=== PATIENT | male | born 1955 | race Caucasian/White ===

== ENCOUNTER 2017-01-10 11:12 | Day surgery (SDC) | payer OTHER ==
[~2017-01-10 11:12] MED LIST: Buffered Lidocaine 0.9% SYRIN* 5 ML/SYR SYRINGE INTRADERM ONE
[2017-01-10] MEDS ORDERED: Famotidine IV* 10 MG/ML 2 ML (20 mg) IV ONE (11:56)
[2017-01-10] MEDS ORDERED: Dexamethasone IV* 4 MG/ML 1 ML (4 MG) IV SLOW PU ONE (11:56)
[2017-01-10] MEDS ORDERED: Famotidine IV* 10 MG/ML 2 ML (20 mg) ONE (12:00)
[2017-01-10] MEDS ORDERED: Dexamethasone IV* 4 MG/ML 1 ML (4 MG) ONE (12:00)
[2017-01-10] MEDS ORDERED: Propofol* 10 MG/ML 20 ML BTL IV PUSH ONE (12:24)
[2017-01-10] MEDS ORDERED: fentaNYL* 50 MCG/ML 2 ML VIAL (100 MCG VIAL) ONE (12:25)
[2017-01-10] MEDS ORDERED: Ondansetron INJ* 2 MG/ML VIAL ONE (12:25)
[2017-01-10] MEDS ORDERED: Midazolam* 1 MG/ML 2 ML VIAL (2 MG) ONE (12:25)
[2017-01-10] MEDS ORDERED: DiMENhydriNATE IV* 50 MG/ML VIAL IV PUSH PRN (14:03)
[2017-01-10] MEDS ORDERED: fentaNYL* 50 MCG/ML 2 ML VIAL (100 MCG VIAL) IV PRN (14:03)
[2017-01-10] MEDS ORDERED: Bupivacaine 0.25% SDV* 30 ML ONE (14:18)
[2017-01-10] MEDS ORDERED: Lidocaine 1% INJ* 10 MG/ML 30 ML SDV ONE (14:18)
[2017-01-10] MEDS ORDERED: ceFAZolin 2 GM PREMIX(*) 2 GM/50 ML BAG IVPB ONE (14:21)
[2017-01-10] MEDS ORDERED: Ketorolac INJ* 30 MG/ML 1 ML VIAL ONE (14:59)
[2017-01-10 15:51] VITALS: BP 137/82
--- NOTE | 2017-01-11 11:45 | OP ---
DATE OF OPERATION: 01/10/17 - [facility] DATE OF : 55 SURGEON: Emigdio Palacios MD. FENCE LABORER: ELÍAS Becerril. ANESTHESIOLOGIST: Dr. Hampton. ANESTHESIA: General. PRE-OP DIAGNOSIS: Left middle finger protuberant mass from the volar aspect over the proximal phalanx. POST-OP DIAGNOSIS: Left middle finger protuberant mass from the volar aspect over the proximal phalanx. OPERATIVE PROCEDURE: Excision of left middle finger mass. INDICATIONS: Benito is a 61-year-old male who over the last 3 months has had a large growth of granulation tissue off the volar aspect of the left middle finger over the proximal phalanx area. It has really gotten bigger over the last couple of weeks. His primary care doctor sent him over. We talked about risks and benefits. He elected to proceed with excision of the mass. He understands there is a small chance this may be malignant in nature, in which case it would require additional surgery. ESTIMATED BLOOD LOSS: 2 mL. COMPLICATIONS: None. FINDINGS: As expected. DESCRIPTION OF PROCEDURE: Benito was seen in the preoperative holding area and the correct site, side, and the procedure were identified. We had a time- out and then we came back to the operating room where the arm was prepped and draped in the usual fashion and a formal time-out was performed. I made an oblique incision over the volar aspect of the middle phalanx in line with the Raheem type incision. I took a millimeter or two of healthy skin on either side of the protuberant fungating mass. Dissection was carried directly down, keeping a margin of healthy tissues on all sides of the mass. It was removed. This was then taken directly off the flexor tendon sheath. The mass did not involve the deep structures. The mass was in the midline and so neither the radial nor ulnar digital neurovascular bundles needed to be visualized. Once the mass was excised in its entirety, while taking to make sure we maintained good hemostasis, we then irrigated out the wound. The skin was then closed with 5-0 nylon suture. The tourniquet was deflated. The arm was then exsanguinated and the tourniquet inflated to 250 mmHg prior to making the skin incision. The finger pinked up immediately. The finger was dressed with Xeroform, 4x4's, 1-inch Hai, and a Coban dressing was applied. He was then woken up and taken to Recovery in stable condition. No local anesthetic was injected. [id number]/[facility] #: [id number] ALYSSIA
== END 2017-01-14 16:04 | disposition home or self-care (01) ==
LOC: OREAST 11:12
PROVIDERS: ATTEND Orthopaedic Surgery Hand Surgery
DX: R22.32 Localized swelling, mass and lump, left upper limb (principal); L98.0 Pyogenic granuloma
CPT/HCPCS: 88305; J0690; J1100; J1885; J2001; J2250; J2405; J2704; J3010

== ENCOUNTER 2018-08-27 05:44 | Day surgery (SDC) | payer OTHER ==
--- NOTE | 2018-08-04 09:46 | HP ---
CC: Dr. Fer Sanz * PREOPERATIVE HISTORY AND PHYSICAL: DATE OF ADMISSION/SURGERY: 08/13/18 This patient is scheduled for same-day surgery admission by Dr. Keith on 08/13/18. DATE OF EXAMINATION: 08/01/18 ATTENDING SURGEON: Dr. Hemant Keith * (dictated by Samantha Trinidad NP) CHIEF COMPLAINT: Right inguinal hernia and umbilical hernia. HISTORY OF PRESENT ILLNESS: The patient is a 63-year-old male who presented to [facility] with a greater than 5-year history of a right inguinal hernia. He describes having a right inguinal hernia repair as a young child. He is not sure when the hernia recurred, possibly somewhere between 5 and 10 years ago. He denies any signs or symptoms to suggest incarceration or strangulation; he describes the bulge getting bigger. He denies any change in bowel or bladder habits. Dr. Keith examined the patient and noted a reducible right inguinal hernia as well as a nonreducible umbilical hernia. Dr. Keith has recommended laparoscopic right inguinal hernia repair with mesh and primary open repair of the umbilical hernia at the same setting. Dr. Keith described the nature of the surgical procedure, the rationale for the procedure, the relevant risks and benefits, the use of mesh and today I reviewed the expected postoperative care and recovery. The patient has had a change to ask questions and stated that he understands the information and is satisfied with the answers given to his questions. He will sign surgical consent on the day of surgery. PAST MEDICAL HISTORY: Hypertension and osteoarthritis. PAST SURGICAL HISTORY: Left hip arthroscopy 2014. MEDICATIONS: Amlodipine/benazepril hydrochloride 5/20 mg 1 p.o. daily. ALLERGIES: No known drug allergies. FAMILY HISTORY: No known anesthesia complications, bleeding tendencies or clotting disorders. SOCIAL HISTORY: He is retired; he has never been a smoker. He occasionally consumes alcohol and denies the use of other substances. REVIEW OF SYSTEMS: Constitutional: No fevers, chills, excessive fatigue or weight loss. Endocrine: No diabetes or thyroid disease. Hematologic: No easy bruising or bleeding. No history of blood transfusions. Respiratory: No dyspnea on exertion, no chronic cough. Cardiovascular: No anginal chest pain, no history of myocardial infarction. Gastrointestinal: No nausea, vomiting, diarrhea, GI bleeding, or constipation. No change in bowel habits. Genitourinary: No dysuria. No change in bladder habits. Musculoskeletal: No chronic back or joint pain. Integumentary: No chronic rashes or skin changes. Neurologic: No headache or blurred vision. No areas of focal weakness or numbness. General: No history of anesthesia complications, no history of deep vein thrombosis or pulmonary embolism. PHYSICAL EXAMINATION GENERAL SURVEY: The patient is a 63-year-old male, well developed, well nourished, in no acute distress. VITAL SIGNS: Height 73.75 inches, weight 220 pounds, body mass index 28.4. Blood pressure 150/80, pulse 72 and regular, respiratory rate 18, temperature 97.8 tympanic. SKIN: Warm, dry, intact. HEENT: Benign. NECK: Supple. No cervical lymphadenopathy. No thyromegaly. Trachea midline. LUNGS: Breath sounds bilaterally clear and equal. BACK: No CVA tenderness. HEART: Regular rate and rhythm. No murmurs or rubs appreciated. ABDOMEN: Active bowel sounds, soft, nondistended, nontender; nonreducible umbilical hernia and mild rectus diastasis. Inguinal exam done by Dr. Keith revealed a right inguinal hernia that is reducible. A well-healed right inguinal incision; no left inguinal hernia on palpation and testes are normally descended without lesion. EXTREMITIES: No edema or skin ulcerations. RECTAL: Exam deferred. NEUROLOGIC: Alert and oriented x3, steady gait. IMPRESSION: 1. Right inguinal hernia. 2. Umbilical hernia. PLAN: Same-day surgery admission to Dr. Keith's service on 08/13/18 for laparoscopic right inguinal hernia repair with mesh and primary open repair of umbilical hernia. MEETA TRINIDAD, AGNIESZKA [id number]/[facility] #: [id number] [facility]
[~2018-08-27 05:44] MED LIST changes: -Buffered Lidocaine 0.9% SYRIN* 5 ML/SYR SYRINGE INTRADERM ONE; +Buffered Lidocaine 1% SYRIN* 1 ML/SYRINGE INTRADERM ONE
[2018-08-27] MEDS ORDERED: Dexamethasone IV* 4 MG/ML 1 ML (4 MG) IV SLOW PU ONE (06:00)
[2018-08-27] MEDS ORDERED: Famotidine IV* 10 MG/ML 2 ML (20 mg) IV ONE (06:00)
[2018-08-27] MEDS ORDERED: Lactated Ringers 1000 ML Bag* 1,000 ML IV SCH (06:00)
[2018-08-27] MEDS ORDERED: Dexamethasone IV* 4 MG/ML 1 ML (4 MG) ONE (06:05)
[2018-08-27] MEDS ORDERED: ceFAZolin 2 GM PREMIX in ORs 2 GM/50 ML BAG IVPB ONE (06:05)
[2018-08-27] MEDS ORDERED: Famotidine IV* 10 MG/ML 2 ML (20 mg) ONE (06:05)
[2018-08-27] MEDS ORDERED: fentaNYL* 50 MCG/ML 2 ML VIAL (100 MCG VIAL) ONE (07:06)
[2018-08-27] MEDS ORDERED: Propofol* 10 MG/ML 20 ML BTL ONE (07:06)
[2018-08-27] MEDS ORDERED: Midazolam* 1 MG/ML 5 ML VIAL (5 MG) ONE (07:06)
[2018-08-27] MEDS ORDERED: Lidocaine 2% PF * 5 ML VIAL ONE (07:07)
[2018-08-27] MEDS ORDERED: Rocuronium* 10 MG/ML VIAL ONE (07:07)
[2018-08-27] MEDS ORDERED: Bupivacaine 0.5% W/EPI SDV* 30 ML VIAL ONE (07:11)
[2018-08-27] MEDS ORDERED: fentaNYL* 50 MCG/ML 2 ML VIAL (100 MCG VIAL) IV PRN (07:25)
[2018-08-27] MEDS ORDERED: HYDROcodone/ACETAMIN 5-325 MG* 1 TAB PO PRN (07:25)
[2018-08-27] MEDS ORDERED: DiMENhydriNATE IV* 50 MG/ML VIAL IV PUSH PRN (07:25)
[2018-08-27] MEDS ORDERED: oxyCODONE TAB* 5 MG TAB PO PRN (07:25)
[2018-08-27] MEDS ORDERED: Naloxone* 0.4 MG/ML 1 ML VIAL IV PRN (07:25)
[2018-08-27] MEDS ORDERED: Ketorolac INJ* 30 MG/ML 1 ML VIAL IV PRN (07:25)
[2018-08-27] MEDS ORDERED: Metoprolol Tartrate IV* 1 MG/ML 5 ML VIAL ONE (07:45)
[2018-08-27] MEDS ORDERED: EPHEDrine (Pressors)* 50 MG/ML VIAL ONE (08:01)
[2018-08-27] MEDS ORDERED: Sugammadex * 200 MG/2 ML VIAL IV PUSH ONE (08:22)
[2018-08-27] MEDS ORDERED: Ondansetron INJ* 2 MG/ML VIAL ONE (08:34)
--- NOTE | 2018-08-27 08:53 | BRIEFOPN ---
Brief Operative Note - Surgery Procedures: Pre-OP Diagnoses: Right inguinal hernia, umbilical hernia Post-op Diagnosis: same Procedure: Laparoscopic right inguinal hernia repair with mesh, open umbilical hernia Surgeon: Inna Brunsont: Amos Hargrovetheshara: ALEAH Russo EBL: minimal IVF: 900cc LR Specimen: none Drains: none
[2018-08-27] MEDS ORDERED: Ketorolac INJ* 30 MG/ML 1 ML VIAL ONE (09:34)
[2018-08-27 09:36] VITALS: BP 143/72
--- NOTE | 2018-08-27 11:01 | OP ---
CC: Dr. Fer Sanz * DATE OF OPERATION: 08/27/18 - [facility] DATE OF : 55 SURGEON: Hemant Keith MD CAMPUS RECEPTIONIST: Jerri Trinidad NP ANESTHESIOLOGIST: Dr. Russo. ANESTHESIA: General. PRE-OP DIAGNOSIS: Right inguinal hernia and umbilical hernia. POST-OP DIAGNOSIS: Right inguinal hernia and umbilical hernia. OPERATIVE PROCEDURE: Laparoscopic right inguinal hernia repair and open umbilical hernia repair. ESTIMATED BLOOD LOSS: Minimal. FLUIDS: 900 cc of crystalloid fluid given. SPECIMENS: None. DESCRIPTION OF PROCEDURE: The patient was identified in the preoperative area, consent was signed. I discussed the case with him again. He was marked and then brought to the operating room and placed on the operating room table in a supine position. Preoperative antibiotics were given. Sequential compression devices were placed on bilateral lower extremities. General anesthesia was induced. The patient's abdomen was clipped of hair and prepped and draped in the standard surgical fashion. A time-out was performed. An infraumbilical incision was made. This was deepened down to the anterior fascia on the right, which was incised. Rectus pillar was retracted laterally and blunt dissection of the preperitoneal plane was made. A 12-mm trocar was inserted through this and the preperitoneal space was allowed to insufflate to a pressure of 12 mmHg. The patient tolerated the insufflation well. Camera was inserted and we appeared to be in the right plane. Blunt dissection with the camera was then performed right down to the pubic symphysis and then two 5- mm trocars were placed in the lower midline. Dissection was carried out exposing both the left and right Fareed's ligament. A large direct hernia was identified. The epigastric vessels on the right were then maintained anteriorly and a blunt dissection was carried out into the Bogros space, which appeared scared from likely previous surgery at the inguinal region. We were able to dissect both sharply and bluntly to expose the space better. We identified spermatic structures and there was no evidence of an indirect hernia. Next, a broad medium size 3DMax mesh was then opened up and placed into the preperitoneal plane, allowed to unfurl, intact Fareed's ligament on the right and also laterally, staying away from the triangle of doom. The mesh sat covering both direct and indirect spaces. Hemostasis was excellent. The preperitoneal space was allowed to collapse and trocars were removed under direct vision. Attention was then turned towards the umbilicus. The incision was extended laterally and the umbilical skin was isolated around a Madison drain. Both sharp and blunt dissection was carried out to free the umbilical skin from the hernia sac. Hernia sac was opened up and omentum was identified in this. We lysed it off of the superior aspect of the hernia sac and this allowed us to reduce the omentum through the umbilical defect. Defect itself was about 1 cm and we closed it with interrupted 0 Prolene sutures. The wound was then irrigated, hemostasis achieved, and the umbilical skin was tacked down with a 2- 0 Vicryl stitch. Next attention was turned towards the fascial incision on the right. This was reapproximated with a 0-Vicryl stitch in a [id number] fashion. Skin was closed in a typical fashion with 3-0 Vicryl followed by a 4- 0 Monocryl subcuticular sutures and the other two 5-mm incision sites were closed with 4-0 Monocryl silk sutures. Steri-Strips and sterile dressing were applied. The patient tolerated the procedure well, was awoken up in the OR and transferred to PACU. [id number]/[facility] #: [id number] ALYSSIA
== END 2018-08-27 10:08 | disposition home or self-care (01) ==
LOC: OR 05:44
PROVIDERS: ATTEND Surgery
DX: K40.90 Unilateral inguinal hernia, without obstruction or gangrene, not specified as recurrent (principal); K42.9 Umbilical hernia without obstruction or gangrene; I10 Essential (primary) hypertension
CPT/HCPCS: C1781; J0690; J1100; J1885; J2250; J2405; J2704; J3010; J3490